=== PATIENT | male | born 1965 ===

== ENCOUNTER 2017-08-21 19:47 | Inpatient (IN) | payer MEDICAID, OTHER ==
[2017-08-21 19:48] VITALS: BMI 18.8
[2017-08-21 20:30] LABS: PH,URINE 6.5 (4.7-8.0); URINE BILIRUBIN NEGATIVE (NEGATIVE); URINE BLOOD NEGATIVE (NEGATIVE); URINE GLUCOSE (UA) NEGATIVE (NEGATIVE); URINE LEUKOCYTE ESTERASE NEGATIVE Leu/uL (NEGATIVE); URINE PROTEIN NEGATIVE mg/dL (<30 mg/dL); URINE UROBILINOGEN 0.2 E.U./dL (<1 E.U./dL)
[2017-08-21 20:32] LABS: HEMOGLOBIN 14.3 g/dL (14.0-18.0); MEAN CORPUSCULAR HEMOGLOBIN 29.7 pg (25.0-35.0); MEAN CORPUSCULAR HGB CONC 33.3 g/dl (31.0-37.0); MEAN PLATELET VOLUME 9.4 fl (7.0-11.0); RBC 4.82 10^6/uL (3.5-6.1); RED CELL DISTRIBUTION WIDTH 13.7 % (11.5-14.5); WHITE BLOOD COUNT 7.4 10^3/ul (4.5-11.0)
[2017-08-21 20:37] LABS: URINE APPEARANCE CLEAR (CLEAR); URINE COLOR YELLOW (YELLOW)
[2017-08-21 20:42] LABS: ALB/GLOB RATIO 1.3 (1.1-1.8); ALBUMIN 4.4 g/dL (3.0-4.8); ALT/SGPT 36 U/L (7-56); AST/SGOT 31 U/L (17-59); BLOOD UREA NITROGEN 14 mg/dL (7-21); CALCIUM 9.8 mg/dL (8.4-10.5); GFR AFRICAN-AMERICAN > 60; GFR NON-AFRICAN AMERICAN > 60
[2017-08-21 20:48] LABS: INR 1.06 (0.93-1.08); PARTIAL THROMBOPLASTIN TIME 31.1 Seconds (25.1-36.5); PROTHROMBIN TIME 12.1 SECONDS (9.4-12.5)
[2017-08-21 20:50] LABS: TROPONIN I < 0.01 ng/mL
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
[2017-08-22] MEDS ORDERED: Pneumococcal 23-Valent Vaccine IM ONE (00:35)
[2017-08-22] MEDS ORDERED: Influenza Vaccine 60 mcg/0.5 mL SYR (4YR UP) IM ONE (00:35)
[2017-08-22 03:09] LABS: TROPONIN I < 0.01 ng/mL
[2017-08-22] MEDS: Pantoprazole 40 mg EC Tab PO SCH (05:19)
[2017-08-22 06:35] LABS: HEMOGLOBIN 13.8 g/dL (14.0-18.0); MEAN CELL VOLUME 89.1 fl (80.0-105.0); MEAN CORPUSCULAR HEMOGLOBIN 29.4 pg (25.0-35.0); MEAN PLATELET VOLUME 9.4 fl (7.0-11.0); RBC 4.69 10^6/uL (3.5-6.1); RED CELL DISTRIBUTION WIDTH 13.9 % (11.5-14.5); WHITE BLOOD COUNT 6.3 10^3/ul (4.5-11.0)
[2017-08-22 06:48] LABS: ALB/GLOB RATIO 1.2 (1.1-1.8); ALBUMIN 3.9 g/dL (3.0-4.8); ALT/SGPT 39 U/L (7-56); AST/SGOT 33 U/L (17-59); BLOOD UREA NITROGEN 13 mg/dL (7-21); CALCIUM 9.2 mg/dL (8.4-10.5); GFR AFRICAN-AMERICAN > 60; GFR NON-AFRICAN AMERICAN > 60
[2017-08-22 06:51] LABS: INR 1.09 (0.93-1.08); PROTHROMBIN TIME 12.5 SECONDS (9.4-12.5)
--- NOTE | 2017-08-22 08:05 | RAD ---
HISTORY: chest pain COMPARISON: No prior. FINDINGS: LUNGS: No active pulmonary disease. A calcified granuloma seen at the left apex versus bony overlap from left scapula or left 2nd rib. PLEURA: No significant pleural effusion identified, no pneumothorax apparent. CARDIOVASCULAR: Normal. OSSEOUS STRUCTURES: No significant abnormalities. VISUALIZED UPPER ABDOMEN: Normal. OTHER FINDINGS: None. IMPRESSION: No acute cardiopulmonary disease appreciated.
[2017-08-22 09:04] LABS: TROPONIN I < 0.01 ng/mL
--- NOTE | 2017-08-22 10:08 | CARD ---
APPROVED REPORT EKG Measurement Heart [id number] <Conclusion> Normal sinus rhythm with sinus arrhythmia Normal ECG
--- NOTE | 2017-08-22 10:24 | CARD ---
APPROVED REPORT EKG Measurement Heart [id number] <Conclusion> Normal sinus rhythm Normal ECG
--- NOTE | 2017-08-22 10:31 | CARD ---
APPROVED REPORT EKG Measurement Heart [id number] <Conclusion> Normal sinus rhythm Minimal voltage criteria for LVH, may be normal variant Borderline ECG
--- NOTE | 2017-08-22 15:42 | US ---
HISTORY: Leg pain and swelling. Evaluate for DVT PHYSICIAN(S): Raphael Cifuentes MD. TECHNIQUE: Duplex sonography and color-flow Doppler with graded compression were used to evaluate the deep venous systems of both lower extremities. FINDINGS: The visualized deep venous systems of both lower extremities are sonographically normal and compressible. Normal wave forms and augmentation are seen. There is no sonographic evidence for deep venous thrombosis in the visualized segments of both lower extremities. IMPRESSION: No sonographic evidence for deep venous thrombosis in the visualized segments of both lower extremities.
--- NOTE | 2017-08-22 16:06 | CARD ---
APPROVED REPORT EXAM: Two-dimensional and M-mode echocardiogram with Doppler and color Doppler. INDICATION CVA/TIA 2D DIMENSIONS Left Atrium (2D)4.3 (1.6-4.0cm)IVSd1.2 (0.7-1.1cm) LVDd4.1 (3.9-5.9cm)PWd1.0 (0.7-1.1cm) LVDs3.0 (2.5-4.0cm)FS (%) 25.9 % LVEF (%)51.4 (>50%) M-Mode DIMENSIONS Aortic Root2.40 (2.2-3.7cm)Aortic Cusp Exc.1.10 (1.5-2.0cm) Aortic Valve AoV Peak Lphrxjfv976.0cm/Alicia Peak GR.10mmHg Mitral Valve E/A ratio0.0 TDI E/Lateral E'0.0E/Medial E'0.0 Tricuspid Valve TR Peak [id number]/sRAP [id number] Peak Gr.26mmHg [id number] LEFT VENTRICLE The left ventricle is normal size. There is mild concentric left ventricular hypertrophy. The systolic function is mildly impaired. There is moderate hypokinesis in the apical lateral wall. Cannot rule out thrombus in apex. RIGHT VENTRICLE The right ventricle is normal size. The right ventricular systolic function is normal. ATRIA The left atrium size is normal. The right atrium size is normal. The interatrial septum is intact with no evidence for an atrial septal defect. AORTIC VALVE The aortic valve is mildly sclerotic. No aortic regurgitation is present. There is no aortic valvular stenosis. MITRAL VALVE The mitral valve is normal in structure. There is no mitral valve regurgitation noted. TRICUSPID VALVE The tricuspid valve is normal in structure. There is mild tricuspid regurgitation. PULMONIC VALVE The pulmonary valve is normal in structure. GREAT VESSELS The aortic root is normal in size. PERICARDIAL EFFUSION There is no pleural effusion. There is no pericardial effusion. <Conclusion> Mildly dilatedl LA. Normal LV size. Mild concentric LVH. Mildly reduced LV systolic function with apical lateral hypokinesis. Cannot exclude apical thrombus. Mild TR.
[2017-08-22] MEDS: Enoxaparin 60 mg Syringe SC SCH (18:28)
--- NOTE | 2017-08-22 21:08 | CON ---
DATE: REASON FOR CONSULTATION: Chest pain. HISTORY OF PRESENT ILLNESS: The patient is a 52-year-old male who sustained a stroke last year while in [place] with residual left hemiplegia. The patient stated that after he finished exercise, he went to sleep and when he wake up in the morning, he found that he had no power in his left side of the body. The patient has a history of hypertension, but is unaware of any other cardiac history. The patient presents because of chest pain that he is unable to characterize. Denies any radiation, and denies any shortness of breath. SOCIAL HISTORY: Nonsmoker, nondrinker. MEDICATIONS: Aspirin 81 mg once a day, Lipitor 20 mg once a day, hydrochlorothiazide 12.5 mg once a day, Zestril 10 mg once a day, Zofran 4 mg intravenously every 4 hours p.r.n., Protonix 40 mg once a day. REVIEW OF SYSTEMS: No nausea or vomiting. No fever or chills. PHYSICAL EXAMINATION GENERAL: The patient is a middle-aged male, who does not appear to be in any distress. VITAL SIGNS: Blood pressure 146/91, heart rate 71, temperature 97.6, respiration 18. HEENT: Normocephalic. NECK: No JVD. CHEST: Clear. HEART: S1 and S2 regular. ABDOMEN: Soft. EXTREMITIES: No edema. NEUROLOGIC: Consistent with residual left hemiparesis. LABORATORY DATA: Today's SMA-7 is entirely within normal limit. Lipid profile is within normal limit. INR is 1.09. PT and PTT are within normal limit. Hemoglobin and hematocrit 15.8 and 41.8. White count and platelet count are within normal limit. EKG revealed normal sinus rhythm with minimal voltage criteria for LVH. Three sets of troponins are negative. ASSESSMENT: 1. Chest pain, myocardial infarctions ruled out. 2. History of cerebrovascular accident with residual left hemiparesis. 3. Hypertension. RECOMMENDATIONS: Case was discussed with the medical team. Continue current aspirin, Lipitor, hydrochlorothiazide and Zestril. Obtain an echocardiogram as well as venous Doppler of the left lower extremity. Obtain serum D-dimer. Pradeep De Jesus MD
[2017-08-23] MEDS: Enoxaparin 60 mg Syringe SC SCH ×2 (06:19→17:51)
[2017-08-23] MEDS: Pantoprazole 40 mg EC Tab PO SCH (06:20)
[2017-08-23 06:25] LABS: HEMOGLOBIN 14.4 g/dL (14.0-18.0); MEAN CELL VOLUME 88.9 fl (80.0-105.0); MEAN CORPUSCULAR HEMOGLOBIN 29.5 pg (25.0-35.0); MEAN CORPUSCULAR HGB CONC 33.2 g/dl (31.0-37.0); MEAN PLATELET VOLUME 9.6 fl (7.0-11.0); RBC 4.88 10^6/uL (3.5-6.1); RED CELL DISTRIBUTION WIDTH 13.9 % (11.5-14.5); WHITE BLOOD COUNT 7.2 10^3/ul (4.5-11.0)
[2017-08-23 06:41] LABS: INR 1.12 (0.93-1.08); PROTHROMBIN TIME 12.9 SECONDS (9.4-12.5)
[2017-08-23 07:20] LABS: ALB/GLOB RATIO 1.2 (1.1-1.8); ALT/SGPT 37 U/L (7-56); AST/SGOT 35 U/L (17-59); BLOOD UREA NITROGEN 17 mg/dL (7-21); CALCIUM 9.4 mg/dL (8.4-10.5); GFR AFRICAN-AMERICAN > 60; GFR NON-AFRICAN AMERICAN > 60
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
--- NOTE | 2017-08-23 13:36 | PN ---
DATE: FOLLOWUP SUBJECTIVE: The patient denies any chest pain or shortness of breath. PHYSICAL EXAMINATION: VITAL SIGNS: Blood pressure 124/81, heart rate 75, temperature 98.5, respiration 20. HEENT: Normocephalic. CHEST: Clear. HEART: S1 and S2 regular. EXTREMITIES: No edema. LABORATORY DATA: Today's SMA-7 is within normal limit. Today's CBC is within normal limit. Venous Doppler of lower extremity, no sonographic evidence of DVT in the visualized segments. Echocardiography study revealed mild dilated left atrium, mild concentric LVH, mildly elevated left ventricular systolic function with apical lateral hypokinesis. Cannot rule out apical thrombus. I did review the image and highly suggestive of left ventricular apical thrombus. ASSESSMENT: 1. Chest pain, myocardial infarction is ruled out. 2. 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 3. Mild depressed ejection fraction. RECOMMENDATIONS: The patient most likely has an underlying coronary artery disease; however, medical therapy is recommended at this time and the patient has a higher than usual risk of stroke at any invasive cardiac workup. The patient was initiated on subcutaneous Lovenox. Continue current aspirin, Lipitor, hydrochlorothiazide and Zestril. Start Coumadin therapy. The patient was advised to comply with Coumadin and start following up in the clinic. Pradeep De Jesus MD
[2017-08-24] MEDS: Pantoprazole 40 mg EC Tab PO SCH (05:10)
[2017-08-24 06:26] LABS: BASO # 0.01 K/mm3 (0.0-2.0); BASO % 0.1 % (0.0-3.0); EOS # 0.4 (0.0-0.7); EOS % 5.6 % (1.5-5.0); GRAN # 3.51 (1.4-6.5); GRAN % 47.1 % (50.0-68.0); HEMOGLOBIN 14.3 g/dL (14.0-18.0); LYMPH # 2.9 (1.2-3.4); LYMPH % 38.4 % (22.0-35.0); MEAN CELL VOLUME 88.2 fl (80.0-105.0); MEAN CORPUSCULAR HEMOGLOBIN 29.7 pg (25.0-35.0); MEAN CORPUSCULAR HGB CONC 33.6 g/dl (31.0-37.0); MEAN PLATELET VOLUME 9.3 fl (7.0-11.0); MONO # 0.7 (0.1-0.6); MONO % 8.8 % (1.0-6.0); RBC 4.82 10^6/uL (3.5-6.1); RED CELL DISTRIBUTION WIDTH 13.8 % (11.5-14.5); WHITE BLOOD COUNT 7.5 10^3/ul (4.5-11.0)
[2017-08-24 06:48] LABS: INR 1.2 (0.93-1.08); PROTHROMBIN TIME 13.8 SECONDS (9.4-12.5)
[2017-08-24 07:21] LABS: ALB/GLOB RATIO 1.2 (1.1-1.8); ALT/SGPT 36 U/L (7-56); AST/SGOT 23 U/L (17-59); BLOOD UREA NITROGEN 18 mg/dL (7-21); CALCIUM 9.5 mg/dL (8.4-10.5); GFR AFRICAN-AMERICAN > 60; GFR NON-AFRICAN AMERICAN > 60
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
[2017-08-24] MEDS: Enoxaparin 60 mg Syringe SC SCH ×2 (10:07→17:43)
--- NOTE | 2017-08-24 13:16 | PN ---
DATE: SUBJECTIVE: The patient denies any chest pain. PHYSICAL EXAMINATION: VITAL SIGNS: Blood pressure 111/75, heart rate 66, temperature 97.4, respirations 20. HEENT: Normocephalic. CHEST: Clear. HEART: S1, S2, regular. EXTREMITIES: No edema. LABORATORY DATA: Today's hemoglobin, hematocrit, white count and platelet count are within normal limit. Today's SMA-7 is within normal limit. Venous Doppler of lower extremity, no JVP. ASSESSMENT: 1. Chest pain, myocardial infarction is ruled out. 2. 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 3. Left ventricular apical thrombus. RECOMMENDATIONS: Continue current aspirin 81 mg once a day, subcutaneous Lovenox 60 mg twice a day, Zestril 20 mg once a day, start Lopressor 25 mg twice a day. Pradeep De Jesus MD
[2017-08-25] MEDS: Pantoprazole 40 mg EC Tab PO SCH (05:54)
[2017-08-25] MEDS: Enoxaparin 60 mg Syringe SC SCH ×2 (05:55→17:03)
[2017-08-25 06:28] LABS: BASO # 0.03 K/mm3 (0.0-2.0); BASO % 0.4 % (0.0-3.0); EOS # 0.5 (0.0-0.7); EOS % 6.2 % (1.5-5.0); GRAN # 3.98 (1.4-6.5); GRAN % 48.2 % (50.0-68.0); HEMOGLOBIN 14.7 g/dL (14.0-18.0); LYMPH # 2.8 (1.2-3.4); LYMPH % 34.5 % (22.0-35.0); MEAN CELL VOLUME 89.3 fl (80.0-105.0); MEAN CORPUSCULAR HEMOGLOBIN 29.6 pg (25.0-35.0); MEAN CORPUSCULAR HGB CONC 33.2 g/dl (31.0-37.0); MEAN PLATELET VOLUME 9.7 fl (7.0-11.0); MONO # 0.9 (0.1-0.6); MONO % 10.7 % (1.0-6.0); RBC 4.96 10^6/uL (3.5-6.1); RED CELL DISTRIBUTION WIDTH 13.9 % (11.5-14.5); WHITE BLOOD COUNT 8.2 10^3/ul (4.5-11.0)
[2017-08-25 07:01] LABS: ALB/GLOB RATIO 1.2 (1.1-1.8); ALT/SGPT 42 U/L (7-56); AST/SGOT 39 U/L (17-59); BLOOD UREA NITROGEN 18 mg/dL (7-21); CALCIUM 9.6 mg/dL (8.4-10.5); GFR AFRICAN-AMERICAN > 60; GFR NON-AFRICAN AMERICAN > 60
[2017-08-25 07:20] LABS: INR 1.7 (0.93-1.08); PROTHROMBIN TIME 19.8 SECONDS (9.4-12.5)
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
--- NOTE | 2017-08-25 14:06 | CT ---
PROCEDURE: CT HEAD WITHOUT CONTRAST. HISTORY: history of CVA; starting anticoagulation COMPARISON: None available. TECHNIQUE: Axial computed tomography images were obtained through the head/brain without intravenous contrast. Radiation dose: Total exam DLP = 914 mGy-cm. This CT exam was performed using one or more of the following dose reduction techniques: Automated exposure control, adjustment of the mA and/or kV according to patient size, and/or use of iterative reconstruction technique. FINDINGS: HEMORRHAGE: No intracranial hemorrhage. BRAIN: No mass effect or edema. There is a large area of encephalomalacia in the right parietal and posterior frontal lobe. No acute findings VENTRICLES: Unremarkable. No hydrocephalus. CALVARIUM: Unremarkable. PARANASAL SINUSES: Unremarkable as visualized. No significant inflammatory changes. MASTOID AIR CELLS: Unremarkable as visualized. No inflammatory changes. OTHER FINDINGS: None. IMPRESSION: Encephalomalacia in the right parietal and posterior frontal lobe. No acute findings
--- NOTE | 2017-08-25 19:57 | PN ---
DATE: SUBJECTIVE: The patient denies any chest pain or shortness of breath. PHYSICAL EXAMINATION: VITAL SIGNS: Blood pressure 106/65, heart rate 68, temperature 98.2, respirations 16. HEENT: Normocephalic. CHEST: Clear. HEART: S1, S2 regular. EXTREMITIES: No edema. LABORATORY DATA: Today's SMA-7 is within normal limits. Today's INR is 1.7. Today's hemoglobin , white count and platelet count are within normal limits. Head CT scan without contrast revealed in the right parietal and posterior frontal lobe. ASSESSMENT: 1. 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 2. Chest pain, myocardial infarction was ruled out. 3. Left ventricular apical thrombus. 4. Mild depressed ejection fraction. RECOMMENDATIONS: Continue current aspirin 81 mg once a day, Coumadin 7.5 mg will be administered today, continue Lipitor 20 mg once a day, Lopressor 25 mg twice a day, hydrochlorothiazide 12.5 mg once a day and Zestril 10 mg once a day. Patient can be discharged on Coumadin therapy at 5 mg daily with supply of one week until he shows up in the clinic for a followup. Pradeep De Jesus MD
[2017-08-26] MEDS: Pantoprazole 40 mg EC Tab PO SCH (05:44)
[2017-08-26] MEDS: Enoxaparin 60 mg Syringe SC SCH (05:44)
[2017-08-26 07:13] LABS: BASO # 0.02 K/mm3 (0.0-2.0); BASO % 0.2 % (0.0-3.0); EOS # 0.4 (0.0-0.7); EOS % 4.3 % (1.5-5.0); GRAN # 4.88 (1.4-6.5); GRAN % 59.6 % (50.0-68.0); HEMOGLOBIN 14.7 g/dL (14.0-18.0); LYMPH # 2.2 (1.2-3.4); LYMPH % 27.1 % (22.0-35.0); MEAN CORPUSCULAR HEMOGLOBIN 29.4 pg (25.0-35.0); MEAN CORPUSCULAR HGB CONC 33.8 g/dl (31.0-37.0); MEAN PLATELET VOLUME 9.1 fl (7.0-11.0); MONO # 0.7 (0.1-0.6); MONO % 8.8 % (1.0-6.0); RED CELL DISTRIBUTION WIDTH 13.7 % (11.5-14.5); WHITE BLOOD COUNT 8.2 10^3/ul (4.5-11.0)
[2017-08-26 07:17] LABS: ALB/GLOB RATIO 1.2 (1.1-1.8); ALBUMIN 4.1 g/dL (3.0-4.8); ALT/SGPT 98 U/L (7-56); AST/SGOT 68 U/L (17-59); BLOOD UREA NITROGEN 19 mg/dL (7-21); CALCIUM 9.3 mg/dL (8.4-10.5); GFR AFRICAN-AMERICAN > 60; GFR NON-AFRICAN AMERICAN > 60
[2017-08-26 07:20] LABS: INR 2.45 (0.93-1.08); PROTHROMBIN TIME 28.7 SECONDS (9.4-12.5)
[2017-08-26 10:01] VITALS: BP 109/68
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
[2017-08-26 14:30] VITALS: RESP 18; TEMP 97.5; O2SAT 96
--- NOTE | 2017-08-26 15:25 | PN ---
DATE: SUBJECTIVE: The patient denies chest pain. PHYSICAL EXAMINATION: VITAL SIGNS: Blood pressure 109/68, heart rate 61, respirations 20, temperature 98. HEENT: Normocephalic. CHEST: Clear. HEART: S1, S2 regular. EXTREMITIES: No edema. LABORATORY DATA: Today's hemoglobin, hematocrit, white count and platelet count are within normal limit. Today's SMA-7 is within normal limit. Today's INR is 2.45. ASSESSMENT: 1. Chest pain, myocardial infarction is ruled out. 2. History of embolic cerebrovascular accident. 3. Left ventricular apical thrombus. RECOMMENDATIONS: Discontinue subcutaneous Lovenox. Continue Zestril , hydrochlorothiazide, Lopressor, Lipitor, aspirin and he is on Coumadin at 5 mg daily. Pradeep De Jesus MD
[2017-08-26 16:25] VITALS: PULSE 75
== END 2017-08-26 17:27 | disposition home or self-care (01) | DRG 311 ==
LOC: ED 19:47 → ERH 22:47 → 3RNO 08-22 00:18 → OBSVTOIN 08-22 17:17
PROVIDERS: ADMIT Hospitalist; ATTEND Internal Medicine
DX: I24.0 Acute coronary thrombosis not resulting in myocardial infarction (principal); I69.354 Hemiplegia and hemiparesis following cerebral infarction affecting left non-dominant side; E78.00 Pure hypercholesterolemia, unspecified; E78.5 Hyperlipidemia, unspecified; I10 Essential (primary) hypertension; R07.89 Other chest pain; Z87.891 Personal history of nicotine dependence; Y08.89XA Assault by other specified means, initial encounter; Y93.9 Activity, unspecified; Y92.009 Unspecified place in unspecified non-institutional (private) residence as the place of occurrence of the external cause

== ENCOUNTER 2017-11-24 12:14 | Observation (INO) | payer MEDICAID ==
--- NOTE | 2017-11-24 13:17 | ED PDOC ---
Arrival/HPI - General Chief Complaint: Headache Historian: Patient - History of Present Illness Narrative History of Present Illness (Text): Patient is a 52 year old male with a past medical history of HTN, HLD and CVA w / residual LUE weakness, left ventricular apical thrombus who presents to the emergency room for evaluation and treatment of right sided head pain upon waking up this morning. States pain originates in the temporal region and radiates to the right eye and right ear. Pain is characterized as being sharp in nature and was rated a 9/10 at its worse. Pain has improved to 5/10 with no acute intervention. Denies trauma to the head and loss of consciousness. Further denies further weakness. Admits to baseline left sided weakness and loss of sensation. Past Medical History - Provider Review Nursing Documentation Reviewed: Yes - Infectious Disease Hx of Infectious Diseases: None - Cardiac Hx Cardiac Disorders: No Hx Hypertension: Yes Other/Comment: Blood clot in heart - Pulmonary Hx Respiratory Disorders: No - Neurological HX Cerebrovascular Accident: Yes (residual L side weakness) - HEENT Hx HEENT Disorder: No - Renal Hx Renal Disorder: No - Endocrine/Metabolic Hx Endocrine Disorders: No - Hematological/Oncological Hx Blood Disorders: No - Integumentary Hx Dermatological Disorder: No - Musculoskeletal/Rheumatological Hx Musculoskeletal Disorders: No - Gastrointestinal Hx Gastrointestinal Disorders: No - Genitourinary/Gynecological Hx Genitourinary Disorders: No - Psychiatric Hx Psychophysiologic Disorder: No Hx Substance Use: No Family/Social History Family/Social History: Unknown Family HX Smoking Status: Former Smoker Hx Alcohol Use: No Hx Substance Use: No Allergies/Home Meds Allergies/Adverse Reactions: Allergies No Known Allergies Allergy (Verified 11/24/17 13:06) Review of Systems - Physician Review All systems were reviewed & negative as marked: Yes - Review of Systems Constitutional: Normal Eyes: Normal. absent: Vision Changes, Photophobia, Eye Pain ENT: Normal Respiratory: Normal Cardiovascular: Normal Gastrointestinal: Normal Musculoskeletal: Normal Skin: Normal Neurological: Headache, Focal Weakness (chronic in nature secondary to previous CVA), Facial Droop (chronic in nature secondary to previous CVA). absent: Dizziness Hemo/Lymphatic: Normal Psychiatric: Normal Physical Exam Vital Signs Temp Pulse Resp BP Pulse Ox 11/24/17 14:05 68 18 131/69 98 11/24/17 13:02 98.2 F 72 16 135/74 96 Temperature: Afebrile Blood Pressure: Normal Pulse: Regular Respiratory Rate: Normal Appearance: Positive for: Well-Appearing, Non-Toxic, Comfortable Pain Distress: None Mental Status: Positive for: Alert and Oriented X 3 - Systems Exam Head: Present: Atraumatic, Normocephalic Pupils: Present: PERRL Extroacular Muscles: Present: EOMI Conjunctiva: Present: Normal Mouth: Present: Moist Mucous Membranes Nose (External): Present: Atraumatic Respiratory/Chest: Present: Clear to Auscultation Cardiovascular: Present: Regular Rate and Rhythm, Normal S1, S2 Abdomen: Present: Normal Bowel Sounds. No: Tenderness, Distention, Peritoneal Signs, Rebound, Guarding Upper Extremity: Present: Normal Inspection Lower Extremity: Present: Normal Inspection Neurological: Present: Speech Normal. No: Motor Func Grossly Intact (left upper extremity and lower extremity 3/5 ) Skin: Present: Warm, Dry, Normal Color Psychiatric: Present: Alert, Oriented x 3, Normal Insight, Normal Concentration Medical Decision Making ED Course and Treatment: Assessment and Plan: Patient is a 52 year old male with a past medical history of HTN, HLD and CVA w / residual LUE weakness, left ventricular apical atrial who presents to the emergency room for evaluation and treatment of right sided head pain. Headache Hx of HTN Hx of HLD HX of CVA with residual weakness in the LUE and LLE 11/24/17 14:02 - CBC, CMP, Mag, Phos - PT, PTT - Head CT without contrast 11/24/17 14:26 - CT of head reviewed- no acute intracranial findings - lab reviewed and appreciated- INR therapeutic 11/24/17 15:31 - patient disposed to observation status - call placed to hospitalist team 11/24/17 15:38 - patient accepted by hospitalist team - Lab Interpretations Lab Results: 11/24/17 14:02 11/24/17 14:02 Lab Results 11/24/17 14:02: PT 24.3 H, INR 2.10 H, APTT 45.8 H 11/24/17 14:02: Sodium 144, Potassium 3.7, Chloride 109 H, Carbon Dioxide 25, Anion Gap 14, BUN 15, Creatinine 0.7 L, Est GFR ( Amer) > 60, Est GFR ( Non-Af Amer) > 60, Random Glucose 117 H, Calcium 8.8, Phosphorus 2.9, Magnesium 2.1, Total Bilirubin 0.2, AST 24, ALT 36, Alkaline Phosphatase 85, Total Protein 6.6, Albumin 3.9, Globulin 2.7, Albumin/Globulin Ratio 1.5 11/24/17 14:02: WBC 7.8, RBC 4.53, Hgb 13.4 L, Hct 39.7 L, MCV 87.6, MCH 29.6, MCHC 33.8, RDW 13.9, Plt Count 236, MPV 9.2, Gran % 60.5, Lymph % (Auto) 28.9, [place] % (Auto) 4.9, Eos % (Auto) 5.4 H, Baso % (Auto) 0.3, Gran # 4.69, Lymph # ( Auto) 2.2, [place] # (Auto) 0.4, Eos # (Auto) 0.4, Baso # (Auto) 0.02 I have reviewed the lab results: Yes - RAD Interpretation Narrative RAD Interpretations (Text): 11/24/17 14:26 PROCEDURE: CT HEAD WITHOUT CONTRAST. HISTORY: head pain COMPARISON: 08/25/2017 TECHNIQUE: Axial computed tomography images were obtained through the head/brain without intravenous contrast. Radiation dose: Total exam DLP = 901 mGy-cm. This CT exam was performed using one or more of the following dose reduction techniques: Automated exposure control, adjustment of the mA and/or kV according to patient size, and/or use of iterative reconstruction technique. FINDINGS: HEMORRHAGE: No intracranial hemorrhage. BRAIN: No mass effect or edema. There is cystic encephalomalacia in the right parietal and frontal lobe. There are no acute findings VENTRICLES: Unremarkable. No hydrocephalus. CALVARIUM: Unremarkable. PARANASAL SINUSES: Unremarkable as visualized. No significant inflammatory changes. MASTOID AIR CELLS: Unremarkable as visualized. No inflammatory changes. OTHER FINDINGS: None. IMPRESSION: No acute intracranial findings Radiology Orders: 11/24/17 13:15 HEAD W/O CONTRAST [CT] Stat Disposition/Present on Arrival - Present on Arrival Any Indicators Present on Arrival: No History of DVT/PE: No History of Uncontrolled Diabetes: No Urinary Catheter: No History of Decub. Ulcer: No History Surgical Site Infection Following: None - Disposition Have Diagnosis and Disposition been Completed?: Yes Diagnosis: TIA (transient ischemic attack) Disposition: HOSPITALIZED Disposition Time: 14:56 Patient Problems: Current Active Problems Problem Status Onset TIA (transient ischemic attack) Acute Condition: FAIR Forms: [employer] (Mongolian)
[2017-11-24 14:15] LABS: BASO # 0.02 K/mm3 (0.0-2.0); BASO % 0.3 % (0.0-3.0); EOS # 0.4 (0.0-0.7); EOS % 5.4 % (1.5-5.0); GRAN # 4.69 (1.4-6.5); GRAN % 60.5 % (50.0-68.0); HEMOGLOBIN 13.4 g/dL (14.0-18.0); LYMPH # 2.2 (1.2-3.4); LYMPH % 28.9 % (22.0-35.0); MEAN CELL VOLUME 87.6 fl (80.0-105.0); MEAN CORPUSCULAR HEMOGLOBIN 29.6 pg (25.0-35.0); MEAN CORPUSCULAR HGB CONC 33.8 g/dl (31.0-37.0); MEAN PLATELET VOLUME 9.2 fl (7.0-11.0); MONO # 0.4 (0.1-0.6); MONO % 4.9 % (1.0-6.0); RBC 4.53 10^6/uL (3.5-6.1); RED CELL DISTRIBUTION WIDTH 13.9 % (11.5-14.5); WHITE BLOOD COUNT 7.8 10^3/ul (4.5-11.0)
--- NOTE | 2017-11-24 14:19 | CT ---
PROCEDURE: CT HEAD WITHOUT CONTRAST. HISTORY: head pain COMPARISON: 08/25/2017 TECHNIQUE: Axial computed tomography images were obtained through the head/brain without intravenous contrast. Radiation dose: Total exam DLP = 901 mGy-cm. This CT exam was performed using one or more of the following dose reduction techniques: Automated exposure control, adjustment of the mA and/or kV according to patient size, and/or use of iterative reconstruction technique. FINDINGS: HEMORRHAGE: No intracranial hemorrhage. BRAIN: No mass effect or edema. There is cystic encephalomalacia in the right parietal and frontal lobe. There are no acute findings VENTRICLES: Unremarkable. No hydrocephalus. CALVARIUM: Unremarkable. PARANASAL SINUSES: Unremarkable as visualized. No significant inflammatory changes. MASTOID AIR CELLS: Unremarkable as visualized. No inflammatory changes. OTHER FINDINGS: None. IMPRESSION: No acute intracranial findings
[2017-11-24 14:25] LABS: ALB/GLOB RATIO 1.5 (1.1-1.8); ALBUMIN 3.9 g/dL (3.0-4.8); ALT/SGPT 36 U/L (7-56); AST/SGOT 24 U/L (17-59); BLOOD UREA NITROGEN 15 mg/dL (7-21); CALCIUM 8.8 mg/dL (8.4-10.5); GFR AFRICAN-AMERICAN > 60; GFR NON-AFRICAN AMERICAN > 60
[2017-11-24 14:28] LABS: INR 2.1 (0.93-1.08); PARTIAL THROMBOPLASTIN TIME 45.8 Seconds (25.1-36.5); PROTHROMBIN TIME 24.3 SECONDS (9.4-12.5)
--- NOTE | 2017-11-24 16:57 | CP.PCM.HP ---
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 He was concerned because he also experienced weakness in his right upper extremity which has since resolved. Patient states the pain began yesterday during the day while at home. States pain originates in the temporal region and radiates to the right eye and right ear. Pain is characterized as being sharp and throbbing in nature and was rated a 8/10 at its worse. Pain has improved to 5/10 with after taking 2 advil. Patient decided to go to the emergency department when he began having trouble getting out of bed due to the headache. Denies trauma to the head and loss of consciousness. Admits to baseline left sided weakness when eyes are closed as well as loss of sensation. Admits to increased stress at home with his sister as of late. PMD: Denies Surgical history: denies Past medical history: CVA with residual left sided weakness and loss of sensation, apical thrombus Allergies: denies Social history: denies tobacco, alcohol, drugs Present on Admission - Present on Admission Any Indicators Present on Admission: No Review of Systems - Constitutional Constitutional: Headache. absent: Anorexia, Chills - EENT Eyes: absent: Blurred Vision, Change in Vision Ears: absent: Tinnitus, Abnormal Hearing Nose/Mouth/Throat: absent: Nasal Congestion, Nasal Discharge, Post Nasal Drip - Cardiovascular Cardiovascular: absent: Chest Pain, Dyspnea - Respiratory Respiratory: absent: Cough, Dyspnea - Gastrointestinal Gastrointestinal: absent: Abdominal Pain, Diarrhea, Nausea, Vomiting - Genitourinary Genitourinary: absent: Dysuria - Musculoskeletal Musculoskeletal: absent: Back Pain - Psychiatric Psychiatric: Anxiety - Endocrine Endocrine: absent: Polydipsia, Polyphagia, Polyuria Past Patient History - Infectious Disease Hx of Infectious Diseases: None - Past Medical History & Family History Past Medical History?: Yes - Past Social History Smoking Status: Former Smoker - CARDIAC Hx Cardiac Disorders: No Hx Hypertension: Yes Other/Comment: Blood clot in heart - PULMONARY Hx Respiratory Disorders: No - NEUROLOGICAL HX Cerebrovascular Accident: Yes (residual L side weakness) - HEENT Hx HEENT Problems: No - RENAL Hx Chronic Kidney Disease: No - ENDOCRINE/METABOLIC Hx Endocrine Disorders: No - HEMATOLOGICAL/ONCOLOGICAL Hx Blood Disorders: No - INTEGUMENTARY Hx Dermatological Problems: No - MUSCULOSKELETAL/RHEUMATOLOGICAL Hx Musculoskeletal Disorders: No - GASTROINTESTINAL Hx Gastrointestinal Disorders: No - GENITOURINARY/GYNECOLOGICAL Hx Genitourinary Disorders: No - PSYCHIATRIC Hx Psychophysiologic Disorder: No Hx Substance Use: No - SURGICAL HISTORY Hx Surgeries: No Meds Allergies/Adverse Reactions: Allergies Allergy/AdvReac Type Severity Reaction Status Date / Time No Known Allergies Allergy Verified 11/24/17 13:06 Physical Exam - Head Exam Head Exam: ATRAUMATIC, NORMAL INSPECTION, NORMOCEPHALIC - Eye Exam Eye Exam: EOMI, Normal appearance - ENT Exam ENT Exam: Mucous Membranes Moist - Neck Exam Neck exam: Positive for: Normal Inspection - Respiratory Exam Respiratory Exam: Clear to Auscultation Bilateral, NORMAL BREATHING PATTERN. absent: Rhonchi, Wheezes - Cardiovascular Exam Cardiovascular Exam: REGULAR RHYTHM, +S1, +S2 - GI/Abdominal Exam GI & Abdominal Exam: Normal Bowel Sounds, Soft - Extremities Exam Extremities exam: Positive for: normal inspection. Negative for: calf tenderness, pedal edema - Back Exam Back exam: NORMAL INSPECTION - Neurological Exam Neurological exam: Alert, CN II-XII Intact, Normal Gait, Oriented x3 - Expanded Neurological Exam Expanded Patient oriented to: person, place, time Cranial nerves: EOM's Intact: Normal, Facial Sensation: Abnormal Left Cerebellar Function: Finger to Nose: Normal, Romberg: Normal Upper motor neuron: Sensory Extinction: Abnormal Right Sensory exam: Lower Extremity 2 Point Discrimination: Abnormal Right, Lower Extremity Light Touch: Abnormal Right, Lower Extremity Pin Prick: Abnormal Right , Lower Extremity Temperature: Abnormal Right, Upper Extremity 2 Point Discrimination: Abnormal Right, Upper Extremity Light Touch: Abnormal Right, Upper Extremity Pin Prick: Abnormal Right, Upper Extremity Temperature: Abnormal Right Neuro motor strength exam: Left Upper Extremity: 4, Right Upper Extremity: 5, Left Lower Extremity: 4, Right Lower Extremity: 5 - Psychiatric Exam Psychiatric exam: Normal Affect, Normal Mood - Skin Skin Exam: Normal Color, Warm Results - Vital Signs Recent Vital Signs: Last Vital Signs Temp 98.2 F 11/24/17 13:02 Pulse 58 L 11/24/17 16:06 Resp 18 11/24/17 16:06 BP 145/79 11/24/17 16:06 Pulse Ox 97 11/24/17 16:06 - Labs Result Diagrams: 11/24/17 14:02 11/24/17 14:02 Labs: Laboratory Results - last 24 hr 11/24/17 11/24/17 11/24/17 14:02 14:02 14:02 WBC 7.8 RBC 4.53 Hgb 13.4 L Hct 39.7 L MCV 87.6 MCH 29.6 MCHC 33.8 RDW 13.9 Plt Count 236 MPV 9.2 Gran % 60.5 Lymph % (Auto) 28.9 [place] % (Auto) 4.9 Eos % (Auto) 5.4 H Baso % (Auto) 0.3 Gran # 4.69 Lymph # (Auto) 2.2 [place] # (Auto) 0.4 Eos # (Auto) 0.4 Baso # (Auto) 0.02 PT 24.3 H INR 2.10 H APTT 45.8 H Sodium 144 Potassium 3.7 Chloride 109 H Carbon Dioxide 25 Anion Gap 14 BUN 15 Creatinine 0.7 L Est GFR ( Amer) > 60 Est GFR (Non-Af Amer) > 60 Random Glucose 117 H Calcium 8.8 Phosphorus 2.9 Magnesium 2.1 Total Bilirubin 0.2 AST 24 ALT 36 Alkaline Phosphatase 85 Total Protein 6.6 Albumin 3.9 Globulin 2.7 Albumin/Globulin Ratio 1.5 Assessment & Plan - Assessment and Plan (Free Text) Assessment: Patient is a 52 year old male with a past medical history of hypertension, hyperlipidemia and 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 Plan: TIA vs Hemiplegic migraine vs. Tension Headache exacerbated with walking/ bending down -NIHS score of 10 assessed in ED -Neurology consult -Tylenol PRN -MRI brain w/o contrast ordered; results pending -Orthostatic vitals signs -Carotid US ordered -Seizure precautions, aspiration precautions, fall precautions Head above bed 30 degrees -Physical Therapy consult for deconditioning History of Cerebrovascular accident with residual left-sided weakness and loss of sensation -Continue with lisinopril 10 mg qD -Continue with lopressor 25 mg BID -Continue with lipitor 20 mg PO DIN -Continue with Aspirin 81 mg qD -Fasting lipid panel ordered History of apical mural thrombus -Cardiology consult -Continue with warfarin 5 mg PO -Repeat echocardiogram to check if resolved -EKG -PT/PTT in a.m. Anxiety -Klonopin GI/DVT prophylaxis: Protonix/Lovenox+SCDs
[2017-11-24 23:19] LABS: URINE BILIRUBIN NEGATIVE (NEGATIVE); URINE BLOOD NEGATIVE (NEGATIVE); URINE GLUCOSE (UA) NEGATIVE (NEGATIVE); URINE LEUKOCYTE ESTERASE NEGATIVE Leu/uL (NEGATIVE); URINE PROTEIN NEGATIVE mg/dL (<30 mg/dL); URINE UROBILINOGEN 0.2 E.U./dL (<1 E.U./dL)
[2017-11-24 23:20] LABS: URINE APPEARANCE CLEAR (CLEAR); URINE COLOR YELLOW (YELLOW)
[2017-11-25 03:23] VITALS: BMI 23.5
[2017-11-25 06:37] LABS: BASO # 0.01 K/mm3 (0.0-2.0); BASO % 0.1 % (0.0-3.0); EOS # 0.5 (0.0-0.7); EOS % 6.9 % (1.5-5.0); GRAN # 3.41 (1.4-6.5); HEMOGLOBIN 13.5 g/dL (14.0-18.0); LYMPH # 2.2 (1.2-3.4); LYMPH % 32.1 % (22.0-35.0); MEAN CELL VOLUME 87.8 fl (80.0-105.0); MEAN CORPUSCULAR HEMOGLOBIN 29.5 pg (25.0-35.0); MEAN CORPUSCULAR HGB CONC 33.6 g/dl (31.0-37.0); MEAN PLATELET VOLUME 9.3 fl (7.0-11.0); MONO # 0.7 (0.1-0.6); MONO % 9.9 % (1.0-6.0); RBC 4.58 10^6/uL (3.5-6.1); RED CELL DISTRIBUTION WIDTH 14.1 % (11.5-14.5); WHITE BLOOD COUNT 6.7 10^3/ul (4.5-11.0)
[2017-11-25 06:40] LABS: ALB/GLOB RATIO 1.3 (1.1-1.8); ALBUMIN 3.9 g/dL (3.0-4.8); ALT/SGPT 35 U/L (7-56); AST/SGOT 28 U/L (17-59); BLOOD UREA NITROGEN 15 mg/dL (7-21); CALCIUM 8.8 mg/dL (8.4-10.5); GFR AFRICAN-AMERICAN > 60; GFR NON-AFRICAN AMERICAN > 60; HDL CHOLESTEROL 56 mg/dL (29-60)
[2017-11-25 06:42] LABS: INR 2.29 (0.93-1.08); PROTHROMBIN TIME 26.8 SECONDS (9.4-12.5)
[2017-11-25 06:47] LABS: LDL CHOLESTEROL 33 mg/dL (0-129)
[2017-11-25] MEDS ORDERED: Enoxaparin 40 mg Syringe SC SCH (10:00)
--- NOTE | 2017-11-25 12:28 | CP.PCM.CON ---
History of Present Illness - History of Present Illness History of Present Illness: Neurology Consultation Note: Mr. Kanu Mendiola is a 52-year-old man with a past medical history of hypertension, hyperlipidemia and previous ischemic stroke involving the right MCA region with resultant left side weakness and facial droop. He had an apical left ventricular thrombus and was started on coumadin for secondary stroke prevention. He presented to the ED for recurrent right eye and headache with transient right side weakness that has since resolved. He described the pain as severe, 8/10, with a pulsating quality radiating to the mandaen region from the right chey[place]-orbital origin. CT scan of the head did not show any hemorrhage, but there was the previous large right MCA infarct with encephalomalacia. MRI of the brain was also done and did not show any acute infarcts. His INR was therapeutic at 2.29. When I saw the patient, he was having lunch and watching the [employer] game of [place]. [place]. He said that his headache was improved. He did not have any new complaints. Review of Systems - Review of Systems All systems: reviewed and no additional remarkable complaints except Past Patient History - Infectious Disease Hx of Infectious Diseases: None - Past Medical History & Family History Past Medical History?: Yes - Past Social History Smoking Status: Never Smoked - CARDIAC Hx Cardiac Disorders: Yes Hx Hypercholesterolemia: Yes Hx Hypertension: Yes - PULMONARY Hx Respiratory Disorders: No - NEUROLOGICAL Hx Neurological Disorder: Yes HX Cerebrovascular Accident: Yes (residual L side weakness) - HEENT Hx HEENT Problems: No - RENAL Hx Chronic Kidney Disease: No - ENDOCRINE/METABOLIC Hx Endocrine Disorders: No - HEMATOLOGICAL/ONCOLOGICAL Hx Blood Disorders: No - INTEGUMENTARY Hx Dermatological Problems: No - MUSCULOSKELETAL/RHEUMATOLOGICAL Hx Musculoskeletal Disorders: No Hx Falls: Yes - GASTROINTESTINAL Hx Gastrointestinal Disorders: No - GENITOURINARY/GYNECOLOGICAL Hx Genitourinary Disorders: No - PSYCHIATRIC Hx Psychophysiologic Disorder: No Hx Substance Use: No - SURGICAL HISTORY Hx Surgeries: No Meds Allergies/Adverse Reactions: Allergies Allergy/AdvReac Type Severity Reaction Status Date / Time No Known Allergies Allergy Verified 11/24/17 13:06 - Medications Medications: Current Medications Acetaminophen (Tylenol 325mg Tab) 650 mg PO Q6H PRN PRN Reason: Fever >100.4 F Aspirin (Ecotrin) 81 mg PO DAILY JOSE C Last Admin: 11/25/17 11:17 Dose: 81 mg Atorvastatin Calcium (Lipitor) 20 mg PO DIN [facility] Last Admin: 11/24/17 18:27 Dose: 20 mg Clonazepam (Klonopin) 0.5 mg PO DAILY [facility] PRN Reason: Protocol Last Admin: 11/25/17 11:17 Dose: 0.5 mg Enoxaparin Sodium (Lovenox) 40 mg SC DAILY [facility] PRN Reason: Protocol Last Admin: 11/25/17 11:18 Dose: 40 mg Lisinopril (Zestril) 10 mg PO DAILY [facility] Last Admin: 11/25/17 11:17 Dose: 10 mg Metoprolol Tartrate (Lopressor) 25 mg PO BID [facility] Last Admin: 11/25/17 11:17 Dose: 25 mg Ondansetron HCl (Zofran Inj) 4 mg IVP Q6H PRN PRN Reason: Nausea/Vomiting Pantoprazole Sodium (Protonix Inj) 40 mg IVP DAILY [facility] Last Admin: 11/25/17 11:18 Dose: 40 mg Warfarin Sodium (Coumadin) 5 mg PO 1800 [facility] PRN Reason: Protocol Last Admin: 11/24/17 18:28 Dose: Not Given Physical Exam - Neurological Exam Neurological exam: Abnormal Gait, CN II-XII Intact, Oriented x3 Additional comments: Speech is fluent. Slight left facial droop. Left side hemiplegia and decreased sensation with upgoing plantar response. Reflexes are brisk on the left L3/4 and C5/6. Results - Vital Signs Recent Vital Signs: Last Vital Signs Temp 97.8 F 11/25/17 07:44 Pulse 57 L 11/25/17 11:17 Resp 20 11/25/17 07:44 BP 125/82 11/25/17 11:17 Pulse Ox 99 11/25/17 07:44 - Labs Result Diagrams: 11/25/17 05:30 11/25/17 05:30 Labs: Laboratory Results - last 24 hr 11/24/17 11/25/17 11/25/17 23:12 05:30 05:30 WBC 6.7 RBC 4.58 Hgb 13.5 L Hct 40.2 L MCV 87.8 MCH 29.5 MCHC 33.6 RDW 14.1 Plt Count 235 MPV 9.3 Gran % 51.0 Lymph % (Auto) 32.1 [place] % (Auto) 9.9 H Eos % (Auto) 6.9 H Baso % (Auto) 0.1 Gran # 3.41 Lymph # (Auto) 2.2 [place] # (Auto) 0.7 H Eos # (Auto) 0.5 Baso # (Auto) 0.01 PT INR APTT Sodium 142 Potassium 4.0 Chloride 107 Carbon Dioxide 25 Anion Gap 14 BUN 15 Creatinine 0.8 Est GFR ( Amer) > 60 Est GFR (Non-Af Amer) > 60 Random Glucose 90 Calcium 8.8 Phosphorus 4.1 Magnesium 2.0 Total Bilirubin 0.5 AST 28 ALT 35 Alkaline Phosphatase 69 Total Protein 6.9 Albumin 3.9 Globulin 3.0 Albumin/Globulin Ratio 1.3 Triglycerides 47 Cholesterol 104 L LDL Cholesterol Direct 33 HDL Cholesterol 56 Urine Color Yellow Urine Appearance Clear Urine pH 7.0 Ur Specific [place] 1.010 Urine Protein Negative Urine Glucose (UA) Negative Urine Ketones Negative Urine Blood Negative Urine Nitrate Negative Urine Bilirubin Negative Urine Urobilinogen 0.2 Ur Leukocyte Esterase Negative 11/25/17 05:30 WBC RBC Hgb Hct MCV MCH MCHC RDW Plt Count MPV Gran % Lymph % (Auto) [place] % (Auto) Eos % (Auto) Baso % (Auto) Gran # Lymph # (Auto) [place] # (Auto) Eos # (Auto) Baso # (Auto) PT 26.8 H INR 2.29 H APTT 44.0 H Sodium Potassium Chloride Carbon Dioxide Anion Gap BUN Creatinine Est GFR ( Amer) Est GFR (Non-Af Amer) Random Glucose Calcium Phosphorus Magnesium Total Bilirubin AST ALT Alkaline Phosphatase Total Protein Albumin Globulin Albumin/Globulin Ratio Triglycerides Cholesterol LDL Cholesterol Direct HDL Cholesterol Urine Color Urine Appearance Urine pH Ur Specific [place] Urine Protein Urine Glucose (UA) Urine Ketones Urine Blood Urine Nitrate Urine Bilirubin Urine Urobilinogen Ur Leukocyte Esterase Assessment & Plan (1) Headache Assessment and Plan: I recommend starting magnesium oxide 400 mg BID for headache prophylaxis. Currently, he is asymptomatic. Status: Acute (2) TIA (transient ischemic attack) Assessment and Plan: The patient is currently on aspirin and coumadin for secondary stroke prevention and he is therapeutic. Currently, not symptomatic. No further recommendations. Imaging is normal. Cardiac follow-up for the LV thrombus. May follow up with me in outpatient neurology clinic in 2 weeks. Thank you. Status: Acute
--- NOTE | 2017-11-25 13:23 | MRI ---
PROCEDURE: MRI BRAIN WITHOUT CONTRAST HISTORY: Non-resolving headache with h/o CVA COMPARISON: CT brain 11/24/17 TECHNIQUE: Multiplanar, multisequence MR images of the brain were obtained without intravenous contrast enhancement. FINDINGS: HEMORRHAGE: No evidence of acute parenchymal, subarachnoid nor extra-axial hemorrhage. There is a small focal area of dark T2 signal seen right posterior frontoparietal region on gradient echo sequence image number 21 that may represent a hemosiderin deposit within the center of a large chronic right posterior temporal parietal lobe infarct on (involving posterior temporoparietal branches of the right middle cerebral artery) DWI: There is a medium-sized irregular focal area of very bright restricted diffusion within deeper white matter of a very large larger chronic right posterior temporoparietal branches of the right MCA. . This finding is consistent with a an acute infarct involving viable parenchyma within a larger chronic infarct. BRAIN PARENCHYMA: As mentioned above, there is a large chronic right posterior temporoparietal infarct with involvement of the right posterior basal nuclei as well as the margin of the right lateral margin of the midbrain, jeimy and upper medulla. Marked ex vacuo dilatation of the right atrium/occipital horn posterior margin right lateral ventricle and to a lesser degree remaining right lateral ventricle. In addition, there are moderate to fairly significant chronic periventricular white matter ischemic changes in the right and to a lesser degree left cerebral hemisphere which extend peripherally into the deep and subcortical regions bilaterally. Multiple small chronic lacunar-type infarcts scattered about both basal nuclei. Questionable few tiny chronic appearing cerebellar lacunar-type infarcts Moderate -significant generalized volume loss. VENTRICLES: No obstructive hydrocephalus. CRANIUM: Unremarkable. ORBITS: Right would conjugate gaze. Orbits contents otherwise unremarkable. PARANASAL SINUSES/MASTOIDS: Minor mucosal thickening within the ethmoid air complex. Minimal mucosal thickening inferior margins both maxillary antra VASCULAR SYSTEM: Visualized major vascular flow voids at skull base patent. OTHER FINDINGS: None. IMPRESSION: Irregular focal area of very bright restricted diffusion within deeper white matter of a very large larger chronic right posterior temporoparietal branches of the right MCA. . This finding is consistent with a an acute infarct involving viable parenchyma within a larger chronic infarct. As mentioned above, there is a large right posterior temporoparietal chronic infarct with involvement of the right posterior basal nuclei as well as the margin of the right lateral margin of the midbrain, jeimy and upper medulla. Marked ex vacuo dilatation of the right atrium/occipital horn posterior margin right lateral ventricle and to a lesser degree remaining right lateral ventricle. Moderate to fairly significant chronic periventricular white matter ischemic changes in the right and to a lesser degree left cerebral hemisphere which extend peripherally into the deep and subcortical regions bilaterally. Multiple small chronic lacunar-type infarcts scattered about both basal nuclei. Questionable few tiny chronic appearing cerebellar lacunar-type infarcts Findings discussed with the [facility] nurse Hiro at approximately 1:10 p.m. with written down and read back verification.
--- NOTE | 2017-11-25 14:25 | CP.PCM.DIS ---
<Sly Aguilar - Last Filed: 11/25/17 14:30> Provider - Provider Date of Admission: 11/24/17 16:00 Attending physician: Otilio Jones MD Consults: Neurology: Dr. Pascal Cardiology: Dr. Barnes Time Spent in preparation of Discharge (in minutes): 40 Diagnosis - Discharge Diagnosis (1) Headache Status: Acute (2) TIA (transient ischemic attack) Status: Acute (3) Left ventricular apical thrombus Status: Acute Priority: High Hospital Course - Lab Results Lab Results: Most Recent Lab Values WBC 6.7 10^3/ul (4.5-11.0) 11/25/17 05:30 RBC 4.58 10^6/uL (3.5-6.1) 11/25/17 05:30 Hgb 13.5 g/dL (14.0-18.0) L 11/25/17 05:30 Hct 40.2 % (42.0-52.0) L 11/25/17 05:30 MCV 87.8 fl (80.0-105.0) 11/25/17 05:30 MCH 29.5 pg (25.0-35.0) 11/25/17 05:30 MCHC 33.6 g/dl (31.0-37.0) 11/25/17 05:30 RDW 14.1 % (11.5-14.5) 11/25/17 05:30 Plt Count 235 10^3/uL (120.0-450.0) 11/25/17 05:30 MPV 9.3 fl (7.0-11.0) 11/25/17 05:30 Gran % 51.0 % (50.0-68.0) 11/25/17 05:30 Lymph % (Auto) 32.1 % (22.0-35.0) 11/25/17 05:30 Mchenry % (Auto) 9.9 % (1.0-6.0) H 11/25/17 05:30 Eos % (Auto) 6.9 % (1.5-5.0) H 11/25/17 05:30 Baso % (Auto) 0.1 % (0.0-3.0) 11/25/17 05:30 Gran # 3.41 (1.4-6.5) 11/25/17 05:30 Lymph # (Auto) 2.2 (1.2-3.4) 11/25/17 05:30 Mchenry # (Auto) 0.7 (0.1-0.6) H 11/25/17 05:30 Eos # (Auto) 0.5 (0.0-0.7) 11/25/17 05:30 Baso # (Auto) 0.01 K/mm3 (0.0-2.0) 11/25/17 05:30 PT 26.8 SECONDS (9.4-12.5) H 11/25/17 05:30 INR 2.29 (0.93-1.08) H 11/25/17 05:30 APTT 44.0 Seconds (25.1-36.5) H 11/25/17 05:30 Sodium 142 mmol/L (132-148) 11/25/17 05:30 Potassium 4.0 mmol/L (3.6-5.0) 11/25/17 05:30 Chloride 107 mmol/L (98-107) 11/25/17 05:30 Carbon Dioxide 25 mmol/L (21-33) 11/25/17 05:30 Anion Gap 14 (10-20) 11/25/17 05:30 BUN 15 mg/dL (7-21) 11/25/17 05:30 Creatinine 0.8 mg/dl (0.8-1.5) 11/25/17 05:30 Est GFR ( Amer) > 60 11/25/17 05:30 Est GFR (Non-Af Amer) > 60 11/25/17 05:30 Random Glucose 90 mg/dL (70-110) 11/25/17 05:30 Calcium 8.8 mg/dL (8.4-10.5) 11/25/17 05:30 Phosphorus 4.1 mg/dL (2.5-4.5) 11/25/17 05:30 Magnesium 2.0 mg/dL (1.7-2.2) 11/25/17 05:30 Total Bilirubin 0.5 mg/dL (0.2-1.3) 11/25/17 05:30 AST 28 U/L (17-59) 11/25/17 05:30 ALT 35 U/L (7-56) 11/25/17 05:30 Alkaline Phosphatase 69 U/L (38-126) 11/25/17 05:30 Total Protein 6.9 g/dL (5.8-8.3) 11/25/17 05:30 Albumin 3.9 g/dL (3.0-4.8) 11/25/17 05:30 Globulin 3.0 gm/dL 11/25/17 05:30 Albumin/Globulin Ratio 1.3 (1.1-1.8) 11/25/17 05:30 Triglycerides 47 mg/dL (35-160) 11/25/17 05:30 Cholesterol 104 mg/dL (130-200) L 11/25/17 05:30 LDL Cholesterol Direct 33 mg/dL (0-129) 11/25/17 05:30 HDL Cholesterol 56 mg/dL (29-60) 11/25/17 05:30 Urine Color Yellow (YELLOW) 11/24/17 23:12 Urine Appearance Clear (CLEAR) 11/24/17 23:12 Urine pH 7.0 (4.7-8.0) 11/24/17 23:12 Ur Specific [place] 1.010 (1.005-1.035) 11/24/17 23:12 Urine Protein Negative mg/dL (<30 mg/dL) 11/24/17 23:12 Urine Glucose (UA) Negative mg/dL (NEGATIVE) 11/24/17 23:12 Urine Ketones Negative mg/dL (NEGATIVE) 11/24/17 23:12 Urine Blood Negative (NEGATIVE) 11/24/17 23:12 Urine Nitrate Negative (NEGATIVE) 11/24/17 23:12 Urine Bilirubin Negative (NEGATIVE) 11/24/17 23:12 Urine Urobilinogen 0.2 E.U./dL (<1 E.U./dL) 11/24/17 23:12 Ur Leukocyte Esterase Negative Gayathri/uL (NEGATIVE) 11/24/17 23:12 - Hospital Course Hospital Course: Patient is a 52 year old male with a past medical history of hypertension, hyperlipidemia and 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 Considering history of stroke patient was concerned that he may be having another stroke and therefore came to the [facility] emergency department for further evaluation. Laboratory values in patient were unremarkable with no singificant findings. 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 MRI brain revealed no acute intracranial findings. Demonstrated however chronic foci of infarction of right hemisphere as well as age related atrophy and chronic white matter ischemic changes. Neurology was consulted for further evaluation. In regards to patient's headaches, taking magnesium oxide BID would help for prophylaxis of headaches. In regards to patient's history of prior CVA and possible TIA, patient is to continue on current therapy of aspirin and coumadin for secondary stroke prevention for which he is currently therapeutic. With patient's history of left apical thrombus, patient is to continue with current coumadin and follow up with [facility] neighborhood clinic for an outpatient echocardiogram as well as cardiology appointment. Patient was educated on importance of diet and remaining as active as possible. Medical compliance was stressed. Patient was seen today stating all his symptoms have resolved and he is feeling much better. Plan of discharged discussed with patient and attending. Patient was in agreement and then discharged. Case discussed and reviewed with Dr. Brigido Aguilar PGY1 Discharge Exam - Head Exam Head Exam: ATRAUMATIC, NORMAL INSPECTION, NORMOCEPHALIC - Eye Exam Eye Exam: EOMI - Respiratory Exam Respiratory Exam: Clear to PA & Lateral, UNREMARKABLE. absent: Wheezes - Cardiovascular Exam Cardiovascular Exam: REGULAR RHYTHM, +S1, +S2 - GI/Abdominal Exam GI & Abdominal Exam: Normal Bowel Sounds, Unremarkable - Extremities Exam Extremities exam: normal inspection - Back Exam Back exam: NORMAL INSPECTION - Neurological Exam Neurological exam: Alert, Oriented x3 Additional comments: motor strength on left upper and lower extremities 3/5 motor strength on right upper and lower extremities 5/5 loss of sensation on left side of face as well as left upper and lower extremity sensation intact on right side of body - Psychiatric Exam Psychiatric exam: Normal Affect - Skin Skin Exam: Normal Color, Warm Discharge Plan - Discharge Medications Prescriptions: Aspirin [Ecotrin] 81 mg PO DAILY #30 tabec Atorvastatin [Lipitor] 20 mg PO DIN #30 tab clonazePAM [Klonopin] 0.5 mg PO DAILY #10 tab Lisinopril [Zestril] 10 mg PO DAILY #30 tab Magnesium Oxide [Mag-Ox] 400 mg PO BID #60 tab Metoprolol Tartrate [Lopressor] 25 mg PO BID #60 tab Warfarin [Coumadin] 5 mg PO 1800 #7 tab - Follow Up Plan Condition: FAIR Disposition: HOME/ ROUTINE Instructions: Transient Ischemic Attack (DC) Additional Instructions: SISSY ORONA, thank you for letting us take care of you today. Your provider was Dr. Fofana and you were treated for TIA and headache. The medical care you received today was directed at your acute symptoms. If you were prescribed any medication, please fill it and take as directed. It may take several days for your symptoms to resolve. Return to the Emergency Department if your symptoms worsen, do not improve, or if you have any other problems. Please contact your doctor or call one of the physicians/clinics you have been referred to that are listed on the Patient Visit Information form that is included in your discharge packet. Bring any paperwork you were given at discharge with you along with any medications you are taking to your follow up visit. Our treatment cannot replace ongoing medical care by a primary care provider outside of the emergency department. 1.Please be sure to follow up with the [facility] which is located within the hospital. 2.Please fill and take medications as prescribed. The only change and addition made to your medication list is magnesium oxide BID which will help prevent your headaches as discussed. 3.It is important that you get your echocardiogram done for further evaluation of your left apical thrombus, please be sure to do so and follow up with a hand flatwork finisher. Thank you for allowing the [facility] team to be part of your care today. If you had an X-Ray or CT scan: A Radiologist will review the ED reading if any change in treatment is needed we will contact you. If you had a blood, urine, or wound culture: It will take several days for the results, if any change in treatment is needed we will contact you. If you had an STI test: It will take 48 hours for the results. Please call after 1 week if you have not heard back. Referrals: [facility] at [facility] [Outside] - 11/27/17 Mark Anthony Pascal MD [Staff Provider] - 2 Week Aureliano Barnes MD [Medical Doctor] - <Rufus Fofana - Last Filed: 11/25/17 21:13> Provider - Provider Date of Admission: 11/24/17 16:00 Attending physician: Otilio Jones MD Hospital Course - Lab Results Lab Results: Most Recent Lab Values WBC 6.7 10^3/ul (4.5-11.0) 11/25/17 05:30 RBC 4.58 10^6/uL (3.5-6.1) 11/25/17 05:30 Hgb 13.5 g/dL (14.0-18.0) L 11/25/17 05:30 Hct 40.2 % (42.0-52.0) L 11/25/17 05:30 MCV 87.8 fl (80.0-105.0) 11/25/17 05:30 MCH 29.5 pg (25.0-35.0) 11/25/17 05:30 MCHC 33.6 g/dl (31.0-37.0) 11/25/17 05:30 RDW 14.1 % (11.5-14.5) 11/25/17 05:30 Plt Count 235 10^3/uL (120.0-450.0) 11/25/17 05:30 MPV 9.3 fl (7.0-11.0) 11/25/17 05:30 Gran % 51.0 % (50.0-68.0) 11/25/17 05:30 Lymph % (Auto) 32.1 % (22.0-35.0) 11/25/17 05:30 Mchenry % (Auto) 9.9 % (1.0-6.0) H 11/25/17 05:30 Eos % (Auto) 6.9 % (1.5-5.0) H 11/25/17 05:30 Baso % (Auto) 0.1 % (0.0-3.0) 11/25/17 05:30 Gran # 3.41 (1.4-6.5) 11/25/17 05:30 Lymph # (Auto) 2.2 (1.2-3.4) 11/25/17 05:30 Mchenry # (Auto) 0.7 (0.1-0.6) H 11/25/17 05:30 Eos # (Auto) 0.5 (0.0-0.7) 11/25/17 05:30 Baso # (Auto) 0.01 K/mm3 (0.0-2.0) 11/25/17 05:30 PT 26.8 SECONDS (9.4-12.5) H 11/25/17 05:30 INR 2.29 (0.93-1.08) H 11/25/17 05:30 APTT 44.0 Seconds (25.1-36.5) H 11/25/17 05:30 Sodium 142 mmol/L (132-148) 11/25/17 05:30 Potassium 4.0 mmol/L (3.6-5.0) 11/25/17 05:30 Chloride 107 mmol/L (98-107) 11/25/17 05:30 Carbon Dioxide 25 mmol/L (21-33) 11/25/17 05:30 Anion Gap 14 (10-20) 11/25/17 05:30 BUN 15 mg/dL (7-21) 11/25/17 05:30 Creatinine 0.8 mg/dl (0.8-1.5) 11/25/17 05:30 Est GFR ( Amer) > 60 11/25/17 05:30 Est GFR (Non-Af Amer) > 60 11/25/17 05:30 Random Glucose 90 mg/dL (70-110) 11/25/17 05:30 Calcium 8.8 mg/dL (8.4-10.5) 11/25/17 05:30 Phosphorus 4.1 mg/dL (2.5-4.5) 11/25/17 05:30 Magnesium 2.0 mg/dL (1.7-2.2) 11/25/17 05:30 Total Bilirubin 0.5 mg/dL (0.2-1.3) 11/25/17 05:30 AST 28 U/L (17-59) 11/25/17 05:30 ALT 35 U/L (7-56) 11/25/17 05:30 Alkaline Phosphatase 69 U/L (38-126) 11/25/17 05:30 Total Protein 6.9 g/dL (5.8-8.3) 11/25/17 05:30 Albumin 3.9 g/dL (3.0-4.8) 11/25/17 05:30 Globulin 3.0 gm/dL 11/25/17 05:30 Albumin/Globulin Ratio 1.3 (1.1-1.8) 11/25/17 05:30 Triglycerides 47 mg/dL (35-160) 11/25/17 05:30 Cholesterol 104 mg/dL (130-200) L 11/25/17 05:30 LDL Cholesterol Direct 33 mg/dL (0-129) 11/25/17 05:30 HDL Cholesterol 56 mg/dL (29-60) 11/25/17 05:30 Urine Color Yellow (YELLOW) 11/24/17 23:12 Urine Appearance Clear (CLEAR) 11/24/17 23:12 Urine pH 7.0 (4.7-8.0) 11/24/17 23:12 Ur Specific [place] 1.010 (1.005-1.035) 11/24/17 23:12 Urine Protein Negative mg/dL (<30 mg/dL) 11/24/17 23:12 Urine Glucose (UA) Negative mg/dL (NEGATIVE) 11/24/17 23:12 Urine Ketones Negative mg/dL (NEGATIVE) 11/24/17 23:12 Urine Blood Negative (NEGATIVE) 11/24/17 23:12 Urine Nitrate Negative (NEGATIVE) 11/24/17 23:12 Urine Bilirubin Negative (NEGATIVE) 11/24/17 23:12 Urine Urobilinogen 0.2 E.U./dL (<1 E.U./dL) 11/24/17 23:12 Ur Leukocyte Esterase Negative Gayathri/uL (NEGATIVE) 11/24/17 23:12 Attending/Attestation - Attestation I have personally seen and examined this patient.: Yes I have fully participated in the care of the patient.: Yes I have reviewed all pertinent clinical information, including history, physical exam and plan: Yes Notes (Text): 11/25/17 21:12 Patient seen and examined at bedside. No overnight issues reported. No new symptoms and admission complaints have resolved. Neuro plan discussed and reviewed. Imaging results noted. Agree with the discharge plan as discussed and outlined by the resident.
--- NOTE | 2017-11-25 14:32 | CARD ---
APPROVED REPORT EXAM: Two-dimensional and M-mode echocardiogram with Doppler and color Doppler. INDICATION 2D DIMENSIONS IVSd1.1 (0.7-1.1cm)LVDd3.9 (3.9-5.9cm) PWd1.2 (0.7-1.1cm)LVDs2.7 (2.5-4.0cm) FS (%) 31.4 %LVEF (%)59.8 (>50%) M-Mode DIMENSIONS Left Atrium (MM)3.80 (2.5-4.0cm)Aortic Root2.50 (2.2-3.7cm) Aortic Cusp Exc.1.60 (1.5-2.0cm) Aortic Valve AoV Peak Hnzlawqs262.0cm/Alicia Peak GR.15mmHgAI P 1/2 [id number] Mitral Valve MV E Zkafinsn26.6cm/sMV A Xgufpguy59.7cm/sE/A ratio1.1 TDI Lateral E' Peak V7.21cm/sMedial E' Peak V6.73cm/sE/Lateral E'10.1 E/Medial E'10.8 Tricuspid Valve TR Peak Cllcipgq671pr/sRAP [id number] Peak Gr.30mmHg [id number] LEFT VENTRICLE The left ventricle is normal size. There is normal left ventricular wall thickness. The left ventricular function is normal. The left ventricular ejection fraction is within the normal range. There is normal LV segmental wall motion. Transmitral Doppler flow pattern is abnormal. RIGHT VENTRICLE The right ventricle is normal size. There is normal right ventricular wall thickness. The right ventricular systolic function is normal. ATRIA The left atrium size is normal. The right atrium size is normal. AORTIC VALVE The aortic valve is mildly to moderately thickened. There is trace to mild aortic regurgitation. MITRAL VALVE The mitral valve is normal in structure. There is no mitral valve regurgitation noted. There is no mitral valve stenosis. TRICUSPID VALVE The tricuspid valve is normal in structure. There is mild tricuspid regurgitation. There is mild pulmonary hypertension. GREAT VESSELS The aortic root is normal in size. The IVC is normal in size and collapses >50% with inspiration. PERICARDIAL EFFUSION There is no pericardial effusion. <Conclusion> The left ventricle is normal size. There is normal left ventricular wall thickness. The left ventricular function is normal. The left ventricular ejection fraction is within the normal range. There is normal LV segmental wall motion. The aortic valve is mildly to moderately thickened. There is trace to mild aortic regurgitation. There is mild tricuspid regurgitation. There is mild pulmonary hypertension.
--- NOTE | 2017-11-25 14:35 | CARD ---
APPROVED REPORT EKG Measurement Heart [id number] PA [id number] <Conclusion> Sinus bradycardia Otherwise normal ECG
[2017-11-25 17:58] VITALS: BP 124/76; PULSE 60
[2017-11-25] MEDS ORDERED: Magnesium Oxide 400 mg Tab UD PO SCH (18:00)
[2017-11-25 18:25] VITALS: RESP 19; TEMP 98; O2SAT 97
--- NOTE | 2017-11-25 19:51 | CON ---
DATE: 11/25/2017 CARDIOLOGY CONSULTATION HISTORY OF PRESENT ILLNESS: Patient presents with headache. CT scan was negative. PAST MEDICAL HISTORY: Includes CVA and hypertension. He has had a previous documented LV thrombus which has been treated at the Clinic with Coumadin. Denies chest pain, denies shortness of breath. His neurologic symptoms are no different than before. He has left-sided weakness. SOCIAL HISTORY: Patient denies smoking. REVIEW OF SYSTEMS: Fourteen-point review of systems is free of cardiac symptoms. PHYSICAL EXAMINATION: VITAL SIGNS: Blood pressure 125/82, the heart rates in the 50s. NECK: Negative JVD. LUNGS: Without rales. HEART: With S1, S2. EXTREMITIES: Without edema. DIAGNOSTIC DATA: EKG is unremarkable. LABORATORY DATA: INR is 2.29, hemoglobin is 13.5. Chemistries reveal troponins, that were not done. IMPRESSION: 1. History of left ventricular thrombus, treated with Coumadin. 2. History of cerebrovascular accident. 3. Hypertension. PLAN: Given these findings, there is no new cerebrovascular accident now. We will obtain an echocardiogram to evaluate the status of the left ventricular thrombus. Raphael Barnes MD
== END 2017-11-25 20:49 | disposition home or self-care (01) ==
LOC: ED 12:14 → ERH 16:00 → 3RNO 20:33
PROVIDERS: ADMIT Internal Medicine; ATTEND Internal Medicine
DX: G45.9 Transient cerebral ischemic attack, unspecified (principal); E78.00 Pure hypercholesterolemia, unspecified; E78.5 Hyperlipidemia, unspecified; I10 Essential (primary) hypertension; I51.3 Intracardiac thrombosis, not elsewhere classified; I69.354 Hemiplegia and hemiparesis following cerebral infarction affecting left non-dominant side; Z79.82 Long term (current) use of aspirin; Z87.891 Personal history of nicotine dependence; Z79.01 Long term (current) use of anticoagulants
CPT/HCPCS: 36415; 70450; 70551; 80053; 80061; 81003; 83735; 84100; 85025; 85610; 85730; 93005; 93306; 93880; 99285; C9113; G0378; J1650

== ENCOUNTER 2017-11-30 08:02 | Emergency (ER) | payer MEDICAID ==
[2017-11-30 08:02] VITALS: BMI 23.5
[2017-11-30 08:20] VITALS: TEMP 99
[2017-11-30] MEDS ORDERED: Amoxicillin-Clav 875-125 mg Tab PO STA (08:36)
--- NOTE | 2017-11-30 08:55 | ED PDOC ---
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 States the pain is characterized as being a dull aching. Pain was worsened after using Q- Tip. Denies fever, chills, chest pain, SOB, abdominal pain, nausea, vomiting, diarrhea, constipation, and urinary symptoms. 11/30/17 08:49 (Dalton Butler) Past Medical History - Provider Review Nursing Documentation Reviewed: Yes - Travel History Have you recently traveled outside [place] w/in the past 3 mons?: No - Infectious Disease Hx of Infectious Diseases: None - Cardiac Hx Cardiac Disorders: Yes Hx Hypertension: Yes - Pulmonary Hx Respiratory Disorders: No - Neurological Hx Neurological Disorder: Yes HX Cerebrovascular Accident: Yes (residual L side weakness) - HEENT Hx HEENT Disorder: No - Renal Hx Renal Disorder: No - Endocrine/Metabolic Hx Endocrine Disorders: No - Hematological/Oncological Hx Blood Disorders: No - Integumentary Hx Dermatological Disorder: No - Musculoskeletal/Rheumatological Hx Musculoskeletal Disorders: Yes Hx Falls: Yes - Gastrointestinal Hx Gastrointestinal Disorders: No - Genitourinary/Gynecological Hx Genitourinary Disorders: No - Psychiatric Hx Psychophysiologic Disorder: No Hx Substance Use: No <Dalton Butler - Last Filed: 11/30/17 08:49> - Past History Past History: Non-Contributing <Lalito Gore - Last Filed: 11/30/17 11:17> Family/Social History - Physician Review Nursing Documentation Reviewed: Yes Family/Social History: Unknown Family HX Smoking Status: Never Smoked Hx Alcohol Use: No Hx Substance Use: No <Dalton Butler - Last Filed: 11/30/17 08:49> Hx Substance Use Treatment: No <Lalito Gore - Last Filed: 11/30/17 11:17> Allergies/Home Meds <Dalton Butler - Last Filed: 11/30/17 08:49> <Lalito Gore - Last Filed: 11/30/17 11:17> Allergies/Adverse Reactions: Allergies No Known Allergies Allergy (Verified 11/30/17 08:22) Review of Systems - Review of Systems Constitutional: Normal Eyes: Normal ENT: Other (right ear pain). absent: Hearing Changes, Tinnitus, TMJ Pain Respiratory: Normal Cardiovascular: Normal Gastrointestinal: Normal Genitourinary Male: Normal Musculoskeletal: Normal Skin: Normal Neurological: Normal Endocrine: Normal Hemo/Lymphatic: Normal Psychiatric: Normal <Dalton Butler - Last Filed: 11/30/17 08:49> Physical Exam Temperature: Afebrile Blood Pressure: Normal Pulse: Regular Respiratory Rate: Normal Appearance: Positive for: Well-Appearing, Non-Toxic, Comfortable Pain Distress: None Mental Status: Positive for: Alert and Oriented X 3 Finger Stick Blood Glucose: 99 - Systems Exam Head: Present: Atraumatic, Normocephalic Pupils: Present: PERRL Extroacular Muscles: Present: EOMI Conjunctiva: Present: Normal Ears: Present: Erythema, Other (right ear canal erythema). No: Normal Canal Mouth: Present: Moist Mucous Membranes Neck: Present: Normal Range of Motion Respiratory/Chest: Present: Clear to Auscultation, Good Air Exchange. No: Respiratory Distress, Accessory Muscle Use Cardiovascular: Present: Regular Rate and Rhythm, Normal S1, S2. No: Murmurs Abdomen: No: Tenderness, Distention, Peritoneal Signs Back: Present: Normal Inspection Upper Extremity: Present: Normal Inspection. No: Cyanosis, Edema Lower Extremity: Present: Normal Inspection. No: Edema Neurological: Present: GCS=15, CN II-XII Intact, Speech Normal Skin: Present: Warm, Dry, Normal Color. No: Rashes Psychiatric: Present: Alert, Oriented x 3, Normal Insight, Normal Concentration <Dalton Butler - Last Filed: 11/30/17 08:49> Vital Signs Reviewed: Yes Blood Pressure: Hypertensive <Lalito Gore - Last Filed: 11/30/17 11:17> Vital Signs Temp Pulse Resp BP Pulse Ox 11/30/17 09:08 99 F 80 17 138/76 99 11/30/17 09:07 99 F 80 17 138/76 99 11/30/17 08:18 99 F 87 18 146/81 97 Medical Decision Making <Dalton Butler - Last Filed: 11/30/17 08:49> Re-evaluation Time: 09:30 Reassessment Condition: Unchanged <Lalito Gore - Last Filed: 11/30/17 11:17> ED Course and Treatment: Assessment and Plan: Patient is a 52 year old male with a past medical history of hypertension, hyperlipidemia and 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 11/30/17 08:56 Otitis Externa - augmentin - ofloxacin ear drops - ok to discharge home (Dalton Butler) I performed the hx and physical exam of the patient and discussed their mgt with the RESIDENT. I reviewed the RESIDENT's NOTE and agree with the assessment and plan of care. exam: + right otic canal tenderness on exam, + tenderness over the Trigus of the right ear, no right ear/pinnea swelling/skin discoloration noted; difficult to visualize the right TM due to right otic canal swelling/copious debris is noted/+ slight clear/yellow discharge noted, no gross bleeding vital signs WNL pt is made aware of his medical results pt is encouraged no Q-tips to his ears pt is encouraged no swimming, dont place his head underneath water pt is encouraged fluids pt will follow up as directed pt will be discharged home (Lalito Gore) - Medication Orders Current Medication Orders: Discontinued Medications Amoxicillin/Clavulanate Potassium (Augmentin 875 Mg-125 Mg Tab) 1 tab PO STAT STA PRN Reason: Protocol Stop: 11/30/17 08:37 Last Admin: 11/30/17 08:48 Dose: 1 tab Disposition/Present on Arrival - Present on Arrival Any Indicators Present on Arrival: No History of DVT/PE: No History of Uncontrolled Diabetes: No Urinary Catheter: No History of Decub. Ulcer: No History Surgical Site Infection Following: None - Disposition Have Diagnosis and Disposition been Completed?: Yes Disposition Time: 08:58 Patient Plan: Discharge <Dalton Butler - Last Filed: 11/30/17 08:49> <Lalito Gore - Last Filed: 11/30/17 11:17> - Disposition Diagnosis: Otitis externa Disposition: HOME/ ROUTINE Condition: GOOD Discharge Instructions (ExitCare): Outer Ear Infection, Outer Ear Infection (DC ) Print Language: SAMI Additional Instructions: SISSY YEEANDRESELIJAH ORONA, thank you for letting us take care of you today. Your provider was Lalito Gore MD and you were treated for ear problem. The emergency medical care you received today was directed at your acute symptoms. If you were prescribed any medication, please fill it and take as directed. It may take several days for your symptoms to resolve. Return to the Emergency Department if your symptoms worsen, do not improve, or if you have any other problems. Please contact your doctor or call one of the physicians/clinics you have been referred to that are listed on the Patient Visit Information form that is included in your discharge packet. Bring any paperwork you were given at discharge with you along with any medications you are taking to your follow up visit. Our treatment cannot replace ongoing medical care by a primary care provider outside of the emergency department. Thank you for allowing the [facility] team to be part of your care today. If you had an X-Ray or CT scan: A Radiologist will review the ED reading if any change in treatment is needed we will contact you. If you had a blood, urine, or wound culture: It will take several days for the results, if any change in treatment is needed we will contact you. If you had an STI test: It will take 48 hours for the results. Please call after 1 week if you have not heard back. Prescriptions: Amoxicillin/Clavulanate [Augmentin 875 MG-125 MG] 1 tab PO Q12H 7 Days tab Ofloxacin Otic 0.3% [Floxin 0.3% Otic Soln] 10 drop OD BID 7 Days bottle Referrals: [facility] [Outside] - Follow up with primary [facility] [Outside] - Follow up with primary [facility] [Outside] - Follow up with primary Alfredo Rossi DO [Doctor [facility]] - Follow up with primary Forms: [facility] (Tajik)
[2017-11-30 09:08] VITALS: BP 138/76; PULSE 80; RESP 17; O2SAT 99
== END 2017-11-30 09:08 | disposition home or self-care (01) ==
LOC: ED 08:02
DX: H60.90 Unspecified otitis externa, unspecified ear (principal); E78.5 Hyperlipidemia, unspecified; I10 Essential (primary) hypertension

== ENCOUNTER 2018-01-30 07:46 | Emergency (ER) | payer MEDICAID, OTHER ==
[2018-01-30 07:46] VITALS: BMI 23.5
[2018-01-30 08:09] VITALS: RESP 18
[2018-01-30 09:12] LABS: ALBUMIN 4.5 g/dL (3.0-4.8); BASO # 0.02 K/mm3 (0.0-2.0); BASO % 0.3 % (0.0-3.0); BLOOD UREA NITROGEN 13 mg/dL (7-21); CALCIUM 9.4 mg/dL (8.4-10.5); EOS # 0.2 (0.0-0.7); EOS % 3.6 % (1.5-5.0); GFR AFRICAN-AMERICAN > 60; GFR NON-AFRICAN AMERICAN > 60; GRAN # 3.48 (1.4-6.5); GRAN % 57.2 % (50.0-68.0); HEMOGLOBIN 14.4 g/dL (14.0-18.0); LYMPH % 32.2 % (22.0-35.0); MEAN CELL VOLUME 87.1 fl (80.0-105.0); MEAN CORPUSCULAR HEMOGLOBIN 29.5 pg (25.0-35.0); MEAN CORPUSCULAR HGB CONC 33.9 g/dl (31.0-37.0); MEAN PLATELET VOLUME 9.3 fl (7.0-11.0); MONO # 0.4 (0.1-0.6); MONO % 6.7 % (1.0-6.0); RBC 4.88 10^6/uL (3.5-6.1); WHITE BLOOD COUNT 6.1 10^3/ul (4.5-11.0)
[2018-01-30 09:13] LABS: ALB/GLOB RATIO 1.3 (1.1-1.8); ALT/SGPT 34 U/L (7-56); AST/SGOT 31 U/L (17-59)
[2018-01-30 09:23] LABS: INR 1.97
--- NOTE | 2018-01-30 09:28 | ED PDOC ---
Arrival/HPI - General Chief Complaint: Lower Extremity Problem/Injury Time Seen by Provider: 01/30/18 08:15 Historian: Patient, Spouse - History of Present Illness Narrative History of Present Illness (Text): 01/30/18 09:23 52 yr old male w/ hx of TIA w/ L sided residual deficit, on coumadin for previous apical thrombus p/w L thigh and hip pain after falling from kneeling position onto ground. Pt notes accidental fall on to L side, slipping while on his knees on the ground. Pt notes no head impact, LOC or shoulder impact, he notes only falling onto his left hip. He also notes L toe pain after falling. He denies any nausea, vomiting, rashes, expanding L thigh, difficulty urinating , encoparesis/enuresis or saddle anesthesia. He denies any worsening deficit. No leg swelling. No other complaints. No PMD Time/Duration: 1 hour Past Medical History - Provider Review Nursing Documentation Reviewed: Yes - Past History Past History: Non-Contributing - Infectious Disease Hx of Infectious Diseases: None - Cardiac Hx Cardiac Disorders: Yes Hx Hypertension: Yes - Pulmonary Hx Respiratory Disorders: No - Neurological Hx Neurological Disorder: Yes HX Cerebrovascular Accident: Yes (residual L side weakness) - HEENT Hx HEENT Disorder: No - Renal Hx Renal Disorder: No - Endocrine/Metabolic Hx Endocrine Disorders: No - Hematological/Oncological Hx Blood Disorders: No - Integumentary Hx Dermatological Disorder: No - Musculoskeletal/Rheumatological Hx Musculoskeletal Disorders: Yes Hx Falls: Yes - Gastrointestinal Hx Gastrointestinal Disorders: No - Genitourinary/Gynecological Hx Genitourinary Disorders: No - Psychiatric Hx Psychophysiologic Disorder: No Hx Substance Use: No - Anesthesia Hx Anesthesia: No Family/Social History - Physician Review Nursing Documentation Reviewed: Yes Family/Social History: Unknown Family HX Smoking Status: Never Smoked Hx Alcohol Use: No Hx Substance Use: No Hx Substance Use Treatment: No Allergies/Home Meds Allergies/Adverse Reactions: Allergies No Known Allergies Allergy (Verified 11/30/17 08:22) Review of Systems - Review of Systems Constitutional: Normal Eyes: Normal ENT: Normal Respiratory: Normal Cardiovascular: Normal Gastrointestinal: Normal Genitourinary Male: Normal Musculoskeletal: Other (L hip, toe and thigh pain) Skin: Normal Neurological: Normal Endocrine: Normal Hemo/Lymphatic: Normal Psychiatric: Normal Physical Exam Vital Signs Reviewed: Yes Vital Signs Temp Pulse Resp BP Pulse Ox 01/30/18 08:00 99.5 F 94 H 18 158/80 H 96 - Systems Exam Head: Present: Atraumatic, Normocephalic Pupils: Present: PERRL Extroacular Muscles: Present: EOMI Conjunctiva: Present: Normal Mouth: Present: Moist Mucous Membranes Neck: Present: Normal Range of Motion Respiratory/Chest: Present: Clear to Auscultation, Good Air Exchange. No: Respiratory Distress, Accessory Muscle Use Cardiovascular: Present: Regular Rate and Rhythm, Normal S1, S2. No: Murmurs Abdomen: No: Tenderness, Distention, Peritoneal Signs Back: Present: Normal Inspection Upper Extremity: Present: Normal Inspection. No: Cyanosis, Edema Lower Extremity: Present: Normal Inspection, NORMAL PULSES, Cyanosis, Capillary Refill < 2 s, Other (L mid thigh tenderness, soft, non-hard compartments on exam ). No: Edema, CALF TENDERNESS, Jose J's Sign, Tenderness, Swelling, Erythema, Deformity, Temperature Abnormalties, Neurovascularly Intact Neurological: Present: GCS=15, Other (LUE and LLE weakness, at baseline strength and sensation per pt and family. No saddle anesthesia. ) Skin: Present: Warm, Dry, Normal Color. No: Rashes Psychiatric: Present: Alert, Oriented x 3, Normal Insight, Normal Concentration Medical Decision Making ED Course and Treatment: 01/30/18 09:32 52 yr old male w/ hx of L sided stroke, on coumadin for apical thrombus p/w L sided thigh and hip and foot pain after mech. fall. No head impact, no LOC. Soft compartments, N/V intact distally. No skin tear or lacs, no syncope / pre- syncope. At baseline neurological and motor capability. Likely MSK pain, will XR. Pt states he does not want any pain meds. Pending imaging and labs. 01/30/18 11:27 imaging unremarkable: Pt able to move leg w/ out pain. good n/v status. no leg swelling. With my extension and flexion of leg, no pain in L hip. Pt states he does not need pain meds INR mildly subtherapeutic- pt notes he just took his coumadin this morning. Pt will need to f/u for further eval. clear for d/c home pt notes he has tylenol at home. - Lab Interpretations Lab Results: 01/30/18 08:50 01/30/18 08:50 Lab Results 01/30/18 08:50: Sodium 141, Potassium 3.9, Chloride 105, Carbon Dioxide 24, Anion Gap 16, BUN 13, Creatinine 0.8, Est GFR ( Amer) > 60, Est GFR (Non- Af Amer) > 60, Random Glucose 99, Calcium 9.4, Total Bilirubin 0.4, AST 31, ALT 34, Alkaline Phosphatase 67, Total Protein 8.0, Albumin 4.5, Globulin 3.4, Albumin/Globulin Ratio 1.3 01/30/18 08:50: PT 23.0 H, INR 1.97 01/30/18 08:50: WBC 6.1, RBC 4.88, Hgb 14.4, Hct 42.5, MCV 87.1, MCH 29.5, MCHC 33.9, RDW 14.0, Plt Count 235, MPV 9.3, Gran % 57.2, Lymph % (Auto) 32.2, [place] % (Auto) 6.7 H, Eos % (Auto) 3.6, Baso % (Auto) 0.3, Gran # 3.48, Lymph # (Auto ) 2.0, [place] # (Auto) 0.4, Eos # (Auto) 0.2, Baso # (Auto) 0.02 I have reviewed the lab results: Yes - RAD Interpretation Radiology Orders: 01/30/18 08:24 FEMUR MIN 2 VIEWS LT [RAD] Stat FOOT LEFT 3 VIEWS ROUTINE [RAD] Stat HIP MIN 2V W/ PELVIS LT [RAD] Stat Disposition/Present on Arrival - Present on Arrival Any Indicators Present on Arrival: No History of DVT/PE: No History of Uncontrolled Diabetes: No Urinary Catheter: No History of Decub. Ulcer: No History Surgical Site Infection Following: None - Disposition Have Diagnosis and Disposition been Completed?: Yes Diagnosis: Muscular pain, Contusion, Fall Disposition: HOME/ ROUTINE Disposition Time: 11:00 Condition: GOOD Discharge Instructions (ExitCare): Taking Care of Bruises, Preventing Falls in the Older Adult, Contusion (DC), Muscle and Bone Pain (DC) Additional Instructions: SISSY ORONA, thank you for letting us take care of you today. Your provider was Rigoberto Santos and you were treated for LEG PAIN. The emergency medical care you received today was directed at your acute symptoms. If you were prescribed any medication, please fill it and take as directed. It may take several days for your symptoms to resolve. Return to the Emergency Department if your symptoms worsen, do not improve, or if you have any other problems. Please contact your doctor or call one of the physicians/clinics you have been referred to that are listed on the Patient Visit Information form that is included in your discharge packet. Bring any paperwork you were given at discharge with you along with any medications you are taking to your follow up visit. Our treatment cannot replace ongoing medical care by a primary care provider outside of the emergency department. Thank you for allowing the [facility] team to be part of your care today. If you had an X-Ray or CT scan: A Radiologist will review the ED reading if any change in treatment is needed we will contact you. If you had a blood, urine, or wound culture: It will take several days for the results, if any change in treatment is needed we will contact you. If you had an STI test: It will take 48 hours for the results. Please call after 1 week if you have not heard back. Referrals: Roslyn Kwong MD [Medical Doctor] - Follow up with primary Forms: [facility] (Georgian)
--- NOTE | 2018-01-30 11:13 | RAD ---
Date of service: 01/30/2018 PROCEDURE: Left Foot Radiographs. HISTORY: Fall COMPARISON: None. FINDINGS: BONES: Bone alignment and mineralization are normal. There is no acute displaced fracture or bone destruction. 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 SOFT TISSUES: Mild periarticular soft tissue swelling at the 1st MTP joint. OTHER FINDINGS: None. IMPRESSION: No acute fracture or dislocation.
--- NOTE | 2018-01-30 11:28 | RAD ---
PROCEDURE: Left Hip X-ray Radiographs. HISTORY: fall COMPARISON: None. FINDINGS: BONES: Bone alignment and mineralization are normal. There is no acute displaced fracture or bone destruction. JOINTS: Normal. SOFT TISSUES: Normal. OTHER FINDINGS: None. IMPRESSION: No acute displaced fracture or dislocation. Please note occult fractures cannot be excluded on plain radiographs. If there is a persistent clinical concern, an MRI of the hip may be performed for further evaluation.
[2018-01-30 11:42] VITALS: BP 148/72; PULSE 90; TEMP 98.9; O2SAT 97
--- NOTE | 2018-01-30 11:47 | RAD ---
Date of service: 01/30/2018 PROCEDURE: Left Femur Radiographs. HISTORY: fall COMPARISON: None. TECHNIQUE: AP and Lateral Radiographs of the left femur. FINDINGS: FEMUR: Normal. No fracture. SOFT TISSUES: Normal. OTHER FINDINGS: None. IMPRESSION: No acute fracture or dislocation.
== END 2018-01-30 11:42 | disposition home or self-care (01) ==
LOC: ED 07:46
DX: M79.1 Myalgia (principal); T14.8XXA Other injury of unspecified body region, initial encounter; W18.39XA Other fall on same level, initial encounter; Y92.9 Unspecified place or not applicable; I10 Essential (primary) hypertension; Z86.73 Personal history of transient ischemic attack (TIA), and cerebral infarction without residual deficits; Z79.01 Long term (current) use of anticoagulants